=== PATIENT | female | born 1945 | race Two or more races ===

== ENCOUNTER → 2016-05-29 | Outpatient (CLI) | payer MEDICARE, OTHER ==
[~2016-05-29] MED LIST: ALPR0.5T6 PO; CHOL500015 PO; GLUC1CAP40 PO; NABU500T PO; OMEP20TA62 PO; PARO25TA3 PO; ZOLP10TA5 PO
[2016-05-29 09:25] LABS: HEMOGLOBIN 14.3 g/dL (11.7-16.4)
[2016-05-29 09:35] LABS: BLOOD UREA NITROGEN 11 mg/dL (7-18)
== END | disposition home or self-care (01) ==
LOC: STAR 08:13
PROVIDERS: ATTEND Obstetrics & Gynecology Female Pelvic Medicine and Reconstructive Surgery
DX: Z01.818 Encounter for other preprocedural examination (principal); N85.8 Other specified noninflammatory disorders of uterus
CPT/HCPCS: 36415; 71020; 80048; 85025; 93005

== ENCOUNTER 2016-06-09 06:54 | Day surgery (SDC) | payer MEDICARE, OTHER ==
[2016-05-29 09:01] VITALS: BP 151/95
[~2016-06-09] VITALS: Ht 157.5 cm; Wt 65.0 kg
[2016-06-09] MEDS ORDERED: LACTATED RINGERS 1,000 ML IV SCH ×2 (07:31→09:41)
[2016-06-09] MEDS ORDERED: MIDAZOLAM 1 MG/ML, 2ML ONE (07:56)
[2016-06-09] MEDS ORDERED: FENTANYL PF 250 MCG/5ML ONE (07:56)
[2016-06-09] MEDS ORDERED: FENTANYL PF 100 MCG/2ML IV PRN (08:30)
[2016-06-09] MEDS ORDERED: PROMETHAZINE 25 MG/ML, 1ML IV PRN (08:30)
[2016-06-09] MEDS ORDERED: KETOROLAC 30 MG/1 ML IV PRN (08:30)
[2016-06-09] MEDS ORDERED: LABETALOL 5MG/ML, 20ML IV PRN (08:30)
[2016-06-09] MEDS ORDERED: HYDROmorphone 1 MG/ML, 1ML IV PRN (08:30)
[2016-06-09] MEDS ORDERED: EPHEDRINE 50 MG/ML, 1ML IVPush PRN (08:30)
[2016-06-09] MEDS ORDERED: MIDAZOLAM 1 MG/ML, 2ML IV PRN (08:30)
[2016-06-09] MEDS ORDERED: ONDANSETRON 2MG/ML, 2ML IVPush PRN ×2 (08:30→10:00)
[2016-06-09] MEDS ORDERED: HYDROcodone/APAP 7.5-325MG/15ML UDC PO PRN (08:30)
[2016-06-09] MEDS ORDERED: ACETAMINOPHEN 325 MG TABLET PO PRN (08:30)
[2016-06-09] MEDS ORDERED: OXYcodone 5 MG/5 ML ORAL.SOL UDC PO PRN (08:30)
[2016-06-09] MEDS ORDERED: MEPERIDINE/PF 25MG/0.5ML IVPush PRN (08:30)
[2016-06-09] MEDS ORDERED: hydrALAzine 20 MG/ML, 1ML IV PRN (08:30)
[2016-06-09] MEDS ORDERED: KETOROLAC 30 MG/1 ML ONE (08:48)
[2016-06-09] MEDS ORDERED: DEXAMETHASONE 4 MG/ML, 1ML ONE (08:48)
[2016-06-09] MEDS ORDERED: PROPOFOL 10 MG/ML, 50ML ONE (08:48)
[2016-06-09] MEDS ORDERED: ONDANSETRON 2MG/ML, 2ML ONE (08:48)
[2016-06-09] MEDS ORDERED: CEFAZOLIN 1,000 MG ONE (08:48)
[2016-06-09] MEDS ORDERED: PROPOFOL 10 MG/ML, 20ML ONE (08:48)
[2016-06-09] MEDS ORDERED: BUPIVACAINE/PF-EPI 0.25% 1:200K INFIL ONE (09:07)
[2016-06-09] MEDS ORDERED: OXYcodone 5 MG/5 ML ORAL.SOL UDC ONE ×2 (09:44)
[2016-06-09] MEDS ORDERED: FENTANYL PF 100 MCG/2ML ONE (09:44)
[2016-06-09] MEDS ORDERED: ACETAMINOPHEN 650 MG/20.3 ML UDC ONE (09:44)
[2016-06-09] MEDS ORDERED: IBUPROFEN 600 MG TABLET PO PRN (10:00)
[2016-06-09] MEDS ORDERED: HYDROcodone/APAP 5/325 TABLET PO PRN (10:00)
[2016-06-09] MEDS ORDERED: PROMETHAZINE 12.5 MG SUPP PR ONE (10:00)
== END 2016-06-09 14:00 | disposition home or self-care (01) ==
LOC: OUT 06:54
PROVIDERS: ATTEND Obstetrics & Gynecology Female Pelvic Medicine and Reconstructive Surgery
DX: N88.2 Stricture and stenosis of cervix uteri (principal); F41.9 Anxiety disorder, unspecified; F32.9 Major depressive disorder, single episode, unspecified; K21.9 Gastro-esophageal reflux disease without esophagitis
CPT/HCPCS: 58558; 88305; J0690; J1100; J1885; J2250; J2405; J2704; J3010; J7120

== ENCOUNTER → 2020-04-18 | Outpatient (CLI) | payer MEDICARE ==
[~2020-04-18] MED LIST changes: -ALPR0.5T6 PO; +ALPR0.5T93 PO; -NABU500T PO; +NABU500T7 PO; -PARO25TA3 PO; +PARO25TA4 PO
== END | disposition home or self-care (01) ==
LOC: CFH 09:34
PROVIDERS: ATTEND Physician Assistant Surgical
DX: M51.36 Other intervertebral disc degeneration, lumbar region (principal); M47.816 Spondylosis without myelopathy or radiculopathy, lumbar region; M48.061 Spinal stenosis, lumbar region without neurogenic claudication; M43.16 Spondylolisthesis, lumbar region
CPT/HCPCS: 72131